=== PATIENT | male | born 1990 ===

== ENCOUNTER 2016-05-14 20:40 | Emergency (ER) | payer SELFPAY ==
[2016-05-14 21:02] VITALS: BP 125/87; PULSE 119; RESP 16; TEMP 97.6; O2SAT 99
[2016-05-14] MEDS ORDERED: Sodium Chloride 0.9% 1,000 ML IV STA (21:13)
--- NOTE | 2016-05-14 21:33 | ED PDOC ---
HPI: Abdomen Time Seen by Provider: 05/14/16 21:07 Chief Complaint (Nursing): GI Problem Chief Complaint (Provider): GI problem History Per: Patient History/Exam Limitations: no limitations Onset/Duration Of Symptoms: Hrs (3x) Current Symptoms Are (Timing): Still Present Severity: Moderate Associated Symptoms: Nausea, Vomiting, Diarrhea (non-bloody). denies: Fever, Other (abdominal pain) Additional Complaint(s): 25 year old male patient presents to the ED with complaints of a GI problem. He reports that he has had nausea, vomiting, and diarrhea since 3x hours prior to arrival. He denies having any abdominal pain, a fever, and bloody stool. PMD: Patient does not recall. Past Medical History Reviewed: Historical Data, Nursing Documentation, Vital Signs Vital Signs: Last Vital Signs Temp 97.6 F 05/14/16 20:59 Pulse 119 H 05/14/16 20:59 Resp 16 05/14/16 20:59 BP 125/87 05/14/16 20:59 Pulse Ox 99 05/14/16 21:39 - Medical History PMH: No Chronic Diseases - Surgical History Surgical History: No Surg Hx - Family History Family History: States: Unknown Family Hx - Home Medications Home Medications: Ambulatory Orders Medication Instructions Recorded Famotidine [Pepcid] 20 mg PO Q12 #20 tab 05/14/16 Fexofenadine/Pseudoephedrine 1 tab PO DAILY 05/14/16 [Sonya-D 24 Hour Tablet] Fluticasone Propionate [Flonase] 2 spray INH DAILY 05/14/16 Ondansetron [Zofran] 4 mg PO Q8H #10 tab 05/14/16 - Allergies Allergies/Adverse Reactions: Allergies Allergy/AdvReac Type Severity Reaction Status Date / Time No Known Allergies Allergy Verified 05/14/16 20:59 Review of Systems ROS Statement: Except As Marked, All Systems Reviewed And Found Negative Constitutional: Negative for: Fever Gastrointestinal: Positive for: Nausea, Vomiting, Diarrhea (non-bloody). Negative for: Abdominal Pain, Hematemesis Physical Exam - Reviewed Nursing Documentation Reviewed: Yes Vital Signs Reviewed: Yes - Physical Exam Appears: Positive for: Well, Non-toxic, No Acute Distress Head Exam: Positive for: ATRAUMATIC, NORMOCEPHALIC Skin: Positive for: Normal Color, Warm, Dry Eye Exam: Positive for: Normal appearance Cardiovascular/Chest: Positive for: Regular Rate, Rhythm, Chest Non Tender Respiratory: Positive for: Normal Breath Sounds. Negative for: Respiratory Distress Gastrointestinal/Abdominal: Positive for: Normal Exam, Soft. Negative for: Tenderness Neurologic/Psych: Positive for: Alert, Oriented (3x) - Laboratory Results Result Diagrams: 05/14/16 21:25 05/14/16 21:25 - ECG O2 Sat by Pulse Oximetry: 99 (RA) Pulse Ox Interpretation: Normal - Progress Re-evaluation Time: 23:12 Condition: Improved (No abd pain No NVD. Feels better. WBC elevated more likely from vomiting. No pain, will not CT abd) Medical Decision Making Medical Decision Makin:07 Initial impression: GI problem Initial plan: * CMP * CBC * sodium chloride 1,000ml IV 100mls/hr * pepcid 20mg IVP * zofran 4mg IVP * reevaluation Scribe Attestation: Documented by Honey Lau, acting as a scribe for Hamlet Luke MD. Provider Scribe Attestation: All medical record entries made by the Scribe were at my direction and personally dictated by me. I have reviewed the chart and agree that the record accurately reflects my personal performance of the history, physical exam, medical decision making, and the department course for this patient. I have also personally directed, reviewed, and agree with the discharge instructions and disposition. Disposition - Clinical Impression Clinical Impression: Gastroenteritis - Patient ED Disposition Is Patient to be Admitted: No Counseled Patient/Family Regarding: Studies Performed, Diagnosis, Need For Followup, Rx Given - Disposition Referrals: [facility] [Outside] Disposition: Routine/Home Disposition Time: 23:13 Condition: FAIR Prescriptions: Famotidine [Pepcid] 20 mg PO Q12 #20 tab Ondansetron [Zofran] 4 mg PO Q8H #10 tab Instructions: Gastroenteritis (ED)
[2016-05-14 21:47] LABS: HEMATOCRIT 52.1 % (35.0-51.0); LYMPH # 0.3 K/uL (1.0-4.3); LYMPH % 1.7 % (20.0-40.0); MEAN CELL VOLUME 89.2 fl (80.0-94.0); MEAN CORPUSCULAR HEMOGLOBIN 29.7 pg (27.0-31.0); MEAN CORPUSCULAR HGB CONC 33.3 g/dL (33.0-37.0); MONO # 5.3 K/uL (0.0-0.8); MONO % 33.1 % (0.0-10.0); NEUT # 10.3 K/uL (1.8-7.0); NEUT % 65.2 % (50.0-75.0); NRBC % 0.5 % (0.0-0.0); PLATELET COUNT 200 K/uL (130-400); RED CELL DISTRIBUTION WIDTH 12.9 % (11.5-14.5); WHITE BLOOD COUNT 15.9 K/uL (4.8-10.8)
[2016-05-14 21:55] LABS: ALKALINE PHOSPHATASE 117 U/L (38-126); ALT/SGPT 40 U/L (21-72); AST/SGOT 27 U/L (17-59); BILIRUBIN,TOTAL 1.1 mg/dl (0.2-1.3); BLOOD UREA NITROGEN 16 mg/dl (9-20); CALCIUM 9.8 mg/dL (8.4-10.2); CARBON DIOXIDE 24 mmol/L (22-30); CHLORIDE 102 mmol/L (98-107); GFR AFRICAN-AMERICAN > 60; GLUCOSE,RANDOM 119 mg/dL (75-110); POTASSIUM 3.9 MMOL/L (3.6-5.0); SODIUM 140 mmol/l (132-148); TOTAL PROTEIN 8.6 G/DL (6.3-8.2)
[2016-05-14 22:09] LABS: ALB/GLOB RATIO 1.5 (1.0-2.1)
[2016-05-14 23:04] LABS: NEUTROPHIL 85 % (42-75); REACTIVE LYMPHOCYTES 1 % (0-0); TOTAL CELLS COUNTED 100
== END 2016-05-15 00:05 | disposition home or self-care (01) ==
LOC: H.ER 20:40
DX: K52.9 Noninfective gastroenteritis and colitis, unspecified (principal)
CPT/HCPCS: 80053; 85025; 96361; 96374; 96375; 99284; J2405; J7040